=== PATIENT | male | born 1990 | race African-American/Black ===

== ENCOUNTER 2021-09-14 22:38 | Emergency (ER) | payer MEDICAID, OTHER ==
[~2021-09-14] VITALS: Ht 175.3 cm; Wt 108.0 kg
[~2021-09-14 22:38] MED LIST: ASPI-867 PO; METO25TA6 PO; OMEP20CA14 PO
[2021-09-15 00:45] LABS: BASOPHILS % 0.4 % (0.0-2.0); CHLORIDE 100 mEq/L (98-107); EOSINOPHILS % 2.5 % (0.0-5.0); HEMOGLOBIN. 14.8 g/dL (14.0-18.0); LYMPHOCYTES % 12.3 % (20.0-50.0); MEAN CORPUSCULAR HEMOGLOBIN 32.3 pg (28.0-32.0); MEAN CORPUSCULAR VOLUME 91.8 fL (80.0-94.0); MEAN PLATELET VOLUME 8.1 fl (7.4-10.4); MONOCYTES % 8.2 % (2.0-8.0); NEUTROPHILS % 76.6 % (40.0-76.0); PLATELET 246 x1000/uL (130-400); RED BLOOD CELL COUNT 4.58 mill/uL (4.7-6.1); RED CELL DISTRIBUTION WIDTH 13.5 % (11.6-14.6)
[2021-09-15 01:31] VITALS: BP 155/92
== END 2021-09-15 01:33 | disposition home or self-care (01) ==
LOC: ER 22:38
DX: K85.90 Acute pancreatitis without necrosis or infection, unspecified (principal); F12.10 Cannabis abuse, uncomplicated; Z90.49 Acquired absence of other specified parts of digestive tract
CPT/HCPCS: 36415; 71045; 80053; 84484; 85025; 93005; 99285

== ENCOUNTER 2022-01-13 14:30 | Inpatient (IN) | payer MEDICAID, OTHER ==
[~2022-01-13] VITALS: Ht 170.2 cm; Wt 99.8 kg
[2022-01-13] MEDS ORDERED: ONDANSETRON HCL 4MG/2ML INJ IV STA (18:24)
[2022-01-13] MEDS ORDERED: MORPHINE SULFATE 4 MG/ML CPJ (NOT FOR IM USE) IV STA (18:24)
[2022-01-13] MEDS ORDERED: SODIUM CHLORIDE 0.9% 1,000 ML IV ONE (18:30)
[2022-01-13 19:13] LABS: HEMATOCRIT. 43.1 % (42.0-52.0); HEMOGLOBIN. 14.4 g/dL (14.0-18.0); MEAN CORPUSCULAR HEMOGLOBIN 30.8 pg (28.0-32.0); MEAN CORPUSCULAR VOLUME 92.1 fL (80.0-94.0); PLATELET 251 x1000/uL (130-400); RED BLOOD CELL COUNT 4.68 mill/uL (4.7-6.1); RED CELL DISTRIBUTION WIDTH 14.4 % (11.6-14.6)
[2022-01-13 19:16] LABS: CHLORIDE 98 mEq/L (98-107)
[2022-01-13 19:25] LABS: ETHANOL BLOOD < 10 mg/dL
[2022-01-13 19:44] LABS: PLATELET ESTIMATE NORMAL
[2022-01-13] MEDS ORDERED: ZOLPIDEM TARTRATE 5MG TABLET PO PRN (21:15)
[2022-01-13] MEDS ORDERED: DEXT 5%/0.45% NACL KCL 20MEQ/L 1,000 ML IV ONE (21:15)
[2022-01-13] MEDS ORDERED: ACETAMINOPHEN 325MG TABLET PO PRN (21:15)
[2022-01-13] MEDS ORDERED: FOLIC ACID 1 MG, THIAMINE HCL 100 MG, MVI, ADULT NO.1 10 ML in DEXTROSE 5% WATER 1,000 ML IV ONE ×4 (21:15)
[2022-01-13] MEDS ORDERED: ONDANSETRON HCL 4MG/2ML INJ IV PRN (21:15)
[2022-01-13] MEDS: POTASSIUM CHLORIDE INJ 20 MEQ in DEXT 5%/0.45% NACL 1000ML 1,000 ML IV SCH (22:43)
[2022-01-13] MEDS: HYDROMORPHONE HCL/PF 2MG/ML CPJ IV PRN (22:43)
[2022-01-13 23:26] LABS: BASOPHILS % 0.4 % (0.0-2.0); EOSINOPHILS % 1.7 % (0.0-5.0); HEMATOCRIT. 38.1 % (42.0-52.0); HEMOGLOBIN. 12.9 g/dL (14.0-18.0); LYMPHOCYTES % 8.3 % (20.0-50.0); MEAN CORPUSCULAR HEMOGLOBIN 31.1 pg (28.0-32.0); MEAN PLATELET VOLUME 7.6 fl (7.4-10.4); MONOCYTES % 8.2 % (2.0-8.0); NEUTROPHILS % 81.4 % (40.0-76.0); PLATELET 224 x1000/uL (130-400); RED BLOOD CELL COUNT 4.14 mill/uL (4.7-6.1); RED CELL DISTRIBUTION WIDTH 14.4 % (11.6-14.6)
[2022-01-13 23:36] LABS: CHLORIDE 103 mEq/L (98-107)
[2022-01-14] MEDS: HYDROMORPHONE HCL/PF 2MG/ML CPJ IV PRN ×4 (01:50→11:45)
[2022-01-14] MEDS: POTASSIUM CHLORIDE INJ 20 MEQ in DEXT 5%/0.45% NACL 1000ML 1,000 ML IV SCH (06:25)
[2022-01-14 08:00] VITALS: BP 155/116
[2022-01-14] MEDS: ENOXAPARIN 30MG/0.3ML SYR SUBCUT SCH ×2 (11:45→20:34)
[2022-01-14 12:00] VITALS: BP 155/116
[2022-01-14] MEDS ORDERED: NALOXONE HCL 0.4MG/ML VIAL IV PRN (12:00)
[2022-01-14] MEDS: DEXT 5%/0.45% NACL KCL 20MEQ/L 1,000 ML IV SCH ×2 (14:22→20:32)
[2022-01-14 16:00] VITALS: BP 175/112
[2022-01-14] MEDS: HYDROCODONE/ACETAMINOPHEN 5/325MG TABLET PO PRN ×2 (16:13→20:44)
[2022-01-14] MEDS ORDERED: CLONIDINE 0.1MG TABLET PO PRN (16:15)
[2022-01-14] MEDS: AMLODIPINE 10MG TABLET PO SCH (16:30)
[2022-01-14 20:00] VITALS: BP 142/101
[2022-01-15 04:00] VITALS: BP 125/88
[2022-01-15] MEDS: DEXT 5%/0.45% NACL KCL 20MEQ/L 1,000 ML IV SCH (04:23)
[2022-01-15 08:00] VITALS: BP 133/95
[2022-01-15 09:02] LABS: BASOPHILS % 0.6 % (0.0-2.0); EOSINOPHILS % 6.3 % (0.0-5.0); HEMATOCRIT. 39.3 % (42.0-52.0); HEMOGLOBIN. 13.4 g/dL (14.0-18.0); LYMPHOCYTES % 15.4 % (20.0-50.0); MEAN CORPUSCULAR HEMOGLOBIN 31.4 pg (28.0-32.0); MEAN PLATELET VOLUME 8.2 fl (7.4-10.4); MONOCYTES % 10.7 % (2.0-8.0); PLATELET 212 x1000/uL (130-400); RED BLOOD CELL COUNT 4.28 mill/uL (4.7-6.1); RED CELL DISTRIBUTION WIDTH 14.4 % (11.6-14.6)
[2022-01-15] MEDS: AMLODIPINE 10MG TABLET PO SCH (09:03)
[2022-01-15] MEDS: ENOXAPARIN 30MG/0.3ML SYR SUBCUT SCH (09:03)
[2022-01-15 09:45] LABS: CHLORIDE 101 mEq/L (98-107)
[2022-01-15 11:49] VITALS: BP 133/85
[2022-01-15 12:00] VITALS: BP 139/89
== END 2022-01-15 15:51 | disposition home or self-care (01) | DRG 282 ==
LOC: ER 15:10 → 6EST 20:29 → ENRESERV 01-14 09:39
PROVIDERS: ADMIT Internal Medicine Pulmonary Disease; ATTEND Internal Medicine Pulmonary Disease
DX: K85.90 Acute pancreatitis without necrosis or infection, unspecified (principal); K76.0 Fatty (change of) liver, not elsewhere classified; E87.1 Hypo-osmolality and hyponatremia; Y90.9 Presence of alcohol in blood, level not specified; E66.9 Obesity, unspecified; F12.90 Cannabis use, unspecified, uncomplicated; R74.01 Elevation of levels of liver transaminase levels; F10.10 Alcohol abuse, uncomplicated; Z68.34 Body mass index [BMI] 34.0-34.9, adult; Z71.3 Dietary counseling and surveillance; Z90.49 Acquired absence of other specified parts of digestive tract; Z79.82 Long term (current) use of aspirin
CPT/HCPCS: 36415; 74176; 76700; 80053; 80320; 84478; 85025; 99285; J1170; J1650; J2270; J2405; J3411; J3480; J3490; J7030; J7070; G0480

== ENCOUNTER 2024-10-15 22:54 | Emergency (ER) | payer MEDICAID, OTHER ==
[~2024-10-15] VITALS: Ht 182.9 cm; Wt 110.0 kg
[2024-10-15 22:59] VITALS: O2SAT 98
[2024-10-15] MEDS: SODIUM CHLORIDE 0.9% 1,000 ML IV ONE (23:46)
[2024-10-16 00:05] LABS: BASOPHILS % 1.1 % (0.0-2.0); EOSINOPHILS % 2.5 % (0.0-5.0); HEMATOCRIT. 48.3 % (42.0-52.0); HEMOGLOBIN. 16.5 g/dL (14.0-18.0); LYMPHOCYTES % 36.1 % (20.0-50.0); MEAN CORPUSCULAR HEMOGLOBIN 31.8 pg (28.0-32.0); MEAN CORPUSCULAR HGB CONC 34.2 g/dL (31.0-37.0); MEAN CORPUSCULAR VOLUME 92.8 fL (80.0-94.0); NEUTROPHILS % 53.3 % (40.0-76.0); PLATELET 308 x1000/uL (130-400); RED CELL DISTRIBUTION WIDTH 12.9 % (11.6-14.6); WHITE BLOOD COUNT 5.5 x1000/uL (4.5-11.0)
[2024-10-16 00:17] LABS: CARBON DIOXIDE 27 mEq/L (21-32); CHLORIDE 100 mEq/L (98-107); POTASSIUM 3.4 mEq/L (3.5-5.1); SODIUM 138 mEq/L (136-145)
[2024-10-16 00:18] LABS: CALCIUM 9.2 mg/dL (8.7-10.4)
[2024-10-16 00:23] LABS: CREATININE 1.2 mg/dL (0.6-1.3); ETHANOL BLOOD 300 mg/dL (<10); GLUCOSE 133 mg/dL (70-105); UREA NITROGEN BLOOD 9 mg/dL (9-23)
[2024-10-16 00:24] LABS: ACETAMINOPHEN < 2 ug/mL (10-30); ALANINE AMINOTRANSFERASE 26 IU/L (10-49); ASPARTATE AMINOTRANSFERASE 33 IU/L (<34)
[2024-10-16 00:25] LABS: BILIRUBIN DIRECT 0.2 mg/dL (<=3.0); BILIRUBIN TOTAL 0.8 mg/dL (0.1-1.0)
[2024-10-16 01:00] VITALS: BP 134/84; PULSE 85; RESP 12; TEMP 36.9; O2SAT 98
[2024-10-16 01:25] LABS: *AMPHETAMINES SCREEN URINE NEGATIVE (NEGATIVE); *BARBITURATES SCREEN URINE NEGATIVE (NEGATIVE); *BENZODIAZEPINES SCREEN URINE NEGATIVE (NEGATIVE); *COCAINE SCREEN URINE NEGATIVE (NEGATIVE); CANNABINOID URINE SCREEN NEGATIVE (NEGATIVE); ECSTASY MDMA SCREEN URINE NEGATIVE (NEGATIVE); METHADONE URINE SCREEN NEGATIVE (NEGATIVE); OPIATES URINE SCREEN NEGATIVE (NEGATIVE); PHENCYCLIDINE URINE SCREEN NEGATIVE (NEGATIVE)
== END 2024-10-16 02:41 | disposition home or self-care (01) ==
LOC: ER 22:54
DX: F10.129 Alcohol abuse with intoxication, unspecified (principal); E11.9 Type 2 diabetes mellitus without complications; Z90.49 Acquired absence of other specified parts of digestive tract; Z79.899 Other long term (current) drug therapy; Z79.82 Long term (current) use of aspirin; Y90.9 Presence of alcohol in blood, level not specified
CPT/HCPCS: 80076; 80048; 80307; 80329; 80320; 83690; 85025; 36415; 96360; 99284; 80305; 70450; J7030; G0480